=== PATIENT | female | born 1960 | race Caucasian/White ===

== ENCOUNTER 2023-12-19 12:55 | Inpatient (IN) | payer BC, OTHER ==
[~2023-12-19] VITALS: Ht 165.1 cm; Wt 71.2 kg
[~2023-12-19 12:55] MED LIST: MECL-69 PO; PANT40TA39 PO
[2023-12-19 14:05] LABS: BASOPHILS % (AUTO) 0.7 % (0-1); EOSINOPHILS # (AUTO) 0.1 X10'3 (0-0.9); EOSINOPHILS % (AUTO) 1.9 % (0-6); HEMATOCRIT 27.7 % (35.0-45.0); HEMOGLOBIN 9.6 g/dl (12.0-16.0); LYMPHOCYTES # (AUTO) 0.6 X10'3 (1.1-4.8); LYMPHOCYTES % (AUTO) 10.7 % (21-51); MEAN CORPUSCULAR HEMOGLOBIN 35.1 PG (27.0-31.0); MEAN CORPUSCULAR HGB CONC 34.5 g/dL (33.0-36.5); MEAN CORPUSCULAR VOLUME 101.6 FL (78-98); MONOCYTES # (AUTO) 0.8 X10'3 (0-0.9); MONOCYTES % (AUTO) 13.7 % (2-12); NEUTROPHILS # (AUTO) 4.1 X10'3 (1.8-7.7); PLATELET COUNT 100 X10'3 (140-440); RED BLOOD COUNT 2.73 X10'6 (4.20-5.60); RED CELL DISTRIBUTION WIDTH 17.3 % (11.5-14.5); WHITE BLOOD COUNT 5.6 X10'3 (4.5-11.0)
[2023-12-19 14:36] LABS: ALANINE AMINOTRANSFERASE 30 U/L (12-78); ALBUMIN 2.5 G/DL (3.4-5.0); ALKALINE PHOSPHATASE 254 IU/L (46-116); ANION GAP 5 (8-16); ASPARTATE AMINO TRANSFERASE 66 U/L (10-37); BILIRUBIN,TOTAL 4.6 MG/DL (0.1-1.0); BLOOD UREA NITROGEN 20 MG/DL (7-18); BUN/CREATININE RATIO 26.7 (10.0-20.0); CALCIUM 8.5 MG/DL (8.5-10.1); CHLORIDE 108 MMOL/L (99-107); CREATININE 0.75 MG/DL (0.40-0.90); GLUCOSE 112 MG/DL (70-104); POTASSIUM 4.6 MMOL/L (3.5-5.1); SODIUM 141 MMOL/L (135-145); TOTAL CARBON DIOXIDE 27.6 MMOL/L (24-32); eCRCL 68 ML/MIN; eGFR 78 ML/MIN
[2023-12-19 14:39] LABS: ALBUMIN/GLOBULIN RATIO 0.6 (1.1-1.5); TOTAL PROTEIN 6.6 G/DL (6.4-8.2)
[2023-12-19 14:58] LABS: ANISOCYTOSIS 1+; PLATELET ESTIMATE DECREASED; TOTAL CELLS COUNTED 100
[2023-12-19 14:59] LABS: BURR CELLS FEW; ELLIPTOCYTES FEW; SCHISTOCYTES FEW
[2023-12-19 15:28] LABS: ETHANOL < 10 MG/DL (<10); INR 1.3 INR; PROTHROMBIN TIME 14.1 SECONDS (9.0-12.0)
[2023-12-19] MEDS: normal saline 1000ML IV soln IVB ONE ×2 (15:43→17:34)
[2023-12-19 16:28] LABS: BILIRUBIN,URINE NEGATIVE (Neg); CLARITY,URINE CLEAR (Clear); COLOR,URINE YELLOW (Yellow); GLUCOSE, URINE NEGATIVE (Neg); KETONES,URINE NEGATIVE (Neg); LEUKOCYTE ESTERASE ,URINE TRACE (Neg); NITRITES, URINE NEGATIVE (Neg); OCCULT BLOOD,URINE NEGATIVE (Neg); PROTEIN,URINE NEGATIVE (Neg)
[2023-12-19] MEDS ORDERED: OXYC-658 PO (16:29)
[2023-12-19] MEDS ORDERED: CELE-193 PO (16:29)
[2023-12-19] MEDS ORDERED: CEFA500C PO (16:29)
[2023-12-19 16:35] LABS: UA COLLECTION TYPE NON-SPECIFIED
[2023-12-19 16:36] LABS: SQUAMOUS EPITHELIAL CELL,UR FEW /LPF (FEW); TRANSITIONAL EPI CELLS,URINE FEW /HPF
[2023-12-19 16:37] LABS: BACTERIA,URINE FEW /HPF (Neg); RBC,URINE 0-2 /HPF (0-2); WBC,URINE 0-4 /HPF (0-4)
[2023-12-19] MEDS ORDERED: FURO40TA4 PO (16:37)
[2023-12-19] MEDS ORDERED: ROSU10TA28 PO (16:37)
[2023-12-19] MEDS ORDERED: PANT40TA54 PO (16:37)
[2023-12-19] MEDS ORDERED: ONDA4TAB12 PO (16:37)
[2023-12-19] MEDS ORDERED: POLY119P2 PO (16:37)
[2023-12-19] MEDS ORDERED: SPIR50TA5 PO (16:37)
[2023-12-19] MEDS ORDERED: CHOL100025 PO (16:38)
[2023-12-19] MEDS ORDERED: CALC500T13 PO (16:38)
[2023-12-19] MEDS ORDERED: ROMO210S (16:40)
[2023-12-19 16:52] LABS: URINE AMPHETAMINE SCREEN NEGATIVE (Neg); URINE BARBITUATE SCREEN NEGATIVE (Neg); URINE BENZODIAZEPINES SCREEN NEGATIVE (Neg); URINE CANNABINOID SCREEN NEGATIVE (Neg); URINE COCAINE SCREEN NEGATIVE (Neg); URINE METHADONE SCREEN NEGATIVE (Neg); URINE OPIATE SCREEN NEGATIVE (Neg); URINE PHENCYCLIDINE SCREEN NEGATIVE (Neg)
[2023-12-19] MEDS: cephalexin 250mg capsule PO ONE (17:34)
[2023-12-19] MEDS ORDERED: mag hydrox/Alum hydrox/simeth 30ml oral suspension PO PRN (17:50)
[2023-12-19] MEDS ORDERED: ondansetron/PF 4mg/2ml inj IV PRN (17:50)
[2023-12-19] MEDS ORDERED: acetaminophen 325mg tablet PO PRN (17:50)
[2023-12-19] MEDS ORDERED: magnesium hydroxide 30ml (MOM) UD suspension PO PRN (17:50)
[2023-12-19] MEDS: dextrose 5%-1/2 normal saline 1,000 ML IV SCH (18:41)
[2023-12-19] MEDS: lactulose 20gm/30ml cup PO SCH (20:37)
[2023-12-19] MEDS: docusate sod 100mg capsule PO SCH (20:38)
[2023-12-19] MEDS: cephalexin 250mg capsule PO SCH (20:38)
[2023-12-19 22:00] VITALS: BP 114/48; PULSE 63; RESP 18; TEMP 97.9; O2SAT 98
[2023-12-19] MEDS: traMADol 50MG tablet PO PRN (22:42)
[2023-12-19 23:00] VITALS: BP 118/61; PULSE 58; RESP 14; TEMP 97.6; O2SAT 100; O2SAT 99
[2023-12-20] VITALS (7 sets, daily range): BP systolic 102–127; BP diastolic 47–62; PULSE 60–84; RESP 14–18; TEMP 97.6–98.9; O2SAT 96–100
[2023-12-20 06:44] LABS: BASOPHILS % (AUTO) 0.5 % (0-1); EOSINOPHILS # (AUTO) 0.1 X10'3 (0-0.9); EOSINOPHILS % (AUTO) 1.9 % (0-6); HEMATOCRIT 23.1 % (35.0-45.0); LYMPHOCYTES # (AUTO) 0.9 X10'3 (1.1-4.8); LYMPHOCYTES % (AUTO) 18.3 % (21-51); MEAN CORPUSCULAR HEMOGLOBIN 35.1 PG (27.0-31.0); MEAN CORPUSCULAR HGB CONC 34.8 g/dL (33.0-36.5); MEAN CORPUSCULAR VOLUME 100.9 FL (78-98); MEAN PLATELET VOLUME 7.6 FL (7.4-10.4); MONOCYTES # (AUTO) 0.8 X10'3 (0-0.9); MONOCYTES % (AUTO) 16.2 % (2-12); NEUTROPHILS # (AUTO) 3.2 X10'3 (1.8-7.7); NEUTROPHILS % (AUTO) 63.1 % (42-75); PLATELET COUNT 87 X10'3 (140-440); RED BLOOD COUNT 2.29 X10'6 (4.20-5.60); RED CELL DISTRIBUTION WIDTH 17.5 % (11.5-14.5); WHITE BLOOD COUNT 5.1 X10'3 (4.5-11.0)
[2023-12-20 07:04] LABS: ALANINE AMINOTRANSFERASE 28 U/L (12-78); ALBUMIN 2.2 G/DL (3.4-5.0); ALBUMIN/GLOBULIN RATIO 0.7 (1.1-1.5); ALKALINE PHOSPHATASE 167 IU/L (46-116); ANION GAP 7 (8-16); ASPARTATE AMINO TRANSFERASE 54 U/L (10-37); BILIRUBIN,TOTAL 3.9 MG/DL (0.1-1.0); BLOOD UREA NITROGEN 14 MG/DL (7-18); BUN/CREATININE RATIO 19.4 (10.0-20.0); CALCIUM 7.5 MG/DL (8.5-10.1); CHLORIDE 113 MMOL/L (99-107); CREATININE 0.72 MG/DL (0.40-0.90); GLUCOSE 113 MG/DL (70-104); POTASSIUM 4.1 MMOL/L (3.5-5.1); SODIUM 143 MMOL/L (135-145); TOTAL CARBON DIOXIDE 22.7 MMOL/L (24-32); TOTAL PROTEIN 5.4 G/DL (6.4-8.2); eCRCL 71 ML/MIN; eGFR 82 ML/MIN
[2023-12-20] MEDS: polyethylene glycol 3350 17gm powd pack PO SCH (08:40)
[2023-12-20] MEDS: cholecalciferol (vitamin D3) 1,000 unit (25mcg) tablet PO SCH (08:42)
[2023-12-20] MEDS: pantoprazole 40mg Tablet.DR PO SCH (08:43)
[2023-12-20] MEDS: spironolactone 50 MG tablet PO SCH (08:43)
[2023-12-20] MEDS: furosemide 40mg tablet PO SCH (08:44)
[2023-12-20] MEDS: atorvastatin 20mg tablet PO SCH (08:44)
[2023-12-20] MEDS: celeCOXIB 100mg capsule PO SCH (08:45)
[2023-12-20] MEDS: calcium carbonate 500mg chew tablet PO SCH (08:45)
[2023-12-20] MEDS: acetaminophen 325mg tablet PO PRN (09:00)
[2023-12-20 09:02] LABS: ANISOCYTOSIS 1+; BURR CELLS 1+; ELLIPTOCYTES FEW; PLATELET ESTIMATE DECREASED; SCHISTOCYTES FEW; TOTAL CELLS COUNTED 100
[2023-12-21 06:00] VITALS: BP 111/45; PULSE 74; RESP 18; TEMP 98.3; O2SAT 100
[2023-12-21 07:29] LABS: BASOPHILS % (AUTO) 0.6 % (0-1); EOSINOPHILS # (AUTO) 0.2 X10'3 (0-0.9); EOSINOPHILS % (AUTO) 2.7 % (0-6); HEMATOCRIT 24.2 % (35.0-45.0); HEMOGLOBIN 8.2 g/dl (12.0-16.0); LYMPHOCYTES # (AUTO) 1.1 X10'3 (1.1-4.8); LYMPHOCYTES % (AUTO) 14.7 % (21-51); MEAN CORPUSCULAR HEMOGLOBIN 34.6 PG (27.0-31.0); MEAN CORPUSCULAR HGB CONC 33.9 g/dL (33.0-36.5); MEAN PLATELET VOLUME 7.8 FL (7.4-10.4); MONOCYTES # (AUTO) 1.2 X10'3 (0-0.9); MONOCYTES % (AUTO) 16.5 % (2-12); NEUTROPHILS # (AUTO) 4.7 X10'3 (1.8-7.7); NEUTROPHILS % (AUTO) 65.5 % (42-75); PLATELET COUNT 90 X10'3 (140-440); RED BLOOD COUNT 2.37 X10'6 (4.20-5.60); RED CELL DISTRIBUTION WIDTH 17.6 % (11.5-14.5); WHITE BLOOD COUNT 7.2 X10'3 (4.5-11.0)
[2023-12-21 07:54] LABS: ALANINE AMINOTRANSFERASE 25 U/L (12-78); ALBUMIN 2.2 G/DL (3.4-5.0); ALKALINE PHOSPHATASE 227 IU/L (46-116); ANION GAP 9 (8-16); ASPARTATE AMINO TRANSFERASE 51 U/L (10-37); BILIRUBIN,TOTAL 4.1 MG/DL (0.1-1.0); BLOOD UREA NITROGEN 18 MG/DL (7-18); BUN/CREATININE RATIO 19.8 (10.0-20.0); CALCIUM 7.5 MG/DL (8.5-10.1); CHLORIDE 108 MMOL/L (99-107); CREATININE 0.91 MG/DL (0.40-0.90); GLUCOSE 137 MG/DL (70-104); POTASSIUM 4.5 MMOL/L (3.5-5.1); SODIUM 139 MMOL/L (135-145); TOTAL CARBON DIOXIDE 22.5 MMOL/L (24-32); eCRCL 56 ML/MIN; eGFR 62 ML/MIN
[2023-12-21 08:00] LABS: ALBUMIN/GLOBULIN RATIO 0.6 (1.1-1.5); TOTAL PROTEIN 5.6 G/DL (6.4-8.2)
[2023-12-21 08:17] VITALS: RESP 18
[2023-12-21 10:00] VITALS: BP 102/44; PULSE 75; RESP 16; TEMP 98.1; O2SAT 98
[2023-12-21] MEDS ORDERED: TRAM50TA2 PO (10:06)
[2023-12-21 10:41] VITALS: RESP 20
== END 2023-12-21 17:50 | disposition home or self-care (01) | DRG 93 ==
LOC: ER 12:56 → ED HOLD 17:52 → ORTHO 4S 21:00
PROVIDERS: ADMIT Internal Medicine; ATTEND Internal Medicine
DX: G92.8 Other toxic encephalopathy (principal); K70.31 Alcoholic cirrhosis of liver with ascites; D53.9 Nutritional anemia, unspecified; K72.10 Chronic hepatic failure without coma; D69.59 Other secondary thrombocytopenia; T40.695A Adverse effect of other narcotics, initial encounter; Z98.891 History of uterine scar from previous surgery; Y92.89 Other specified places as the place of occurrence of the external cause; Z91.048 Other nonmedicinal substance allergy status; Z88.0 Allergy status to penicillin; Z98.84 Bariatric surgery status; Z90.49 Acquired absence of other specified parts of digestive tract; Z79.899 Other long term (current) drug therapy; Z86.718 Personal history of other venous thrombosis and embolism
CPT/HCPCS: 36415; 70450; 71045; 76700; 80053; 80305; 80320; 81001; 82140; 83605; 84145; 85007; 85025; 85610; 87040; 87088; 99285; A6223; A6253; A6446; A6449; C1758; G0378; J3490; J7030

== ENCOUNTER 2024-03-28 02:58 | Emergency (ER) | payer OTHER ==
[~2024-03-28] VITALS: Ht 157.5 cm; Wt 75.0 kg
[~2024-03-28 02:58] MED LIST changes: +CALC500T13 PO; +CEFA500C PO; +CELE-193 PO; +CHOL100025 PO; +FURO40TA4 PO; -MECL-69 PO; +ONDA-243 PO; -PANT40TA39 PO; +PANT40TA54 PO; +POLY119P2 PO; +ROMO210S; +ROSU10TA72 PO; +SPIR50TA5 PO; +TRAM50TA2 PO
[2024-03-28] MEDS: LORazepam 1 MG tablet PO ONE (03:58)
[2024-03-28] MEDS: ketorolac tromethamine 15mg/ml inj. IM ONE (03:59)
[2024-03-28] MEDS ORDERED: LORA-269 PO (04:38)
[2024-03-28 05:09] VITALS: BP 109/65; PULSE 71; RESP 14; TEMP 98.7; O2SAT 99
== END 2024-03-28 05:11 | disposition home or self-care (01) ==
LOC: ER 02:59
DX: G89.18 Other acute postprocedural pain (principal); M25.522 Pain in left elbow; Z98.890 Other specified postprocedural states; Z86.718 Personal history of other venous thrombosis and embolism; Z88.0 Allergy status to penicillin; Z88.8 Allergy status to other drugs, medicaments and biological substances; Z79.899 Other long term (current) drug therapy; Z79.2 Long term (current) use of antibiotics
CPT/HCPCS: 73080; 96372; 99283; J1885

== ENCOUNTER 2024-07-26 12:10 | Emergency (ER) | payer OTHER ==
[~2024-07-26] VITALS: Ht 154.9 cm; Wt 81.2 kg
[~2024-07-26 12:10] MED LIST changes: +LORA-269 PO
[2024-07-26 12:19] VITALS: TEMP 98.7
[2024-07-26 14:49] LABS: BASOPHILS % (AUTO) 0.6 % (0-1); EOSINOPHILS # (AUTO) 0.1 X10'3 (0-0.9); EOSINOPHILS % (AUTO) 1.6 % (0-6); HEMATOCRIT 29.7 % (35.0-45.0); HEMOGLOBIN 10.1 g/dl (12.0-16.0); LYMPHOCYTES # (AUTO) 0.9 X10'3 (1.1-4.8); LYMPHOCYTES % (AUTO) 14.1 % (21-51); MEAN CORPUSCULAR HEMOGLOBIN 33.3 PG (27.0-31.0); MEAN CORPUSCULAR HGB CONC 34.1 g/dL (33.0-36.5); MEAN CORPUSCULAR VOLUME 97.7 FL (78-98); MEAN PLATELET VOLUME 7.4 FL (7.4-10.4); MONOCYTES # (AUTO) 1.2 X10'3 (0-0.9); MONOCYTES % (AUTO) 18.4 % (2-12); NEUTROPHILS # (AUTO) 4.3 X10'3 (1.8-7.7); NEUTROPHILS % (AUTO) 65.3 % (42-75); PLATELET COUNT 144 X10'3 (140-440); RED BLOOD COUNT 3.04 X10'6 (4.20-5.60); WHITE BLOOD COUNT 6.5 X10'3 (4.5-11.0)
[2024-07-26 15:09] LABS: ALANINE AMINOTRANSFERASE 24 U/L (12-78); ALBUMIN 2.7 G/DL (3.4-5.0); ALKALINE PHOSPHATASE 227 IU/L (46-116); AMYLASE 75 U/L (25-115); ANION GAP 7 (8-16); ASPARTATE AMINO TRANSFERASE 58 U/L (10-37); BILIRUBIN,TOTAL 3.8 MG/DL (0.1-1.0); BLOOD UREA NITROGEN 14 MG/DL (7-18); BUN/CREATININE RATIO 20.3 (10.0-20.0); CALCIUM 8.1 MG/DL (8.5-10.1); CHLORIDE 108 MMOL/L (99-107); CREATININE 0.69 MG/DL (0.40-0.90); GLUCOSE 73 MG/DL (70-104); LIPASE 42 U/L (16-77); POTASSIUM 4.2 MMOL/L (3.5-5.1); SODIUM 140 MMOL/L (135-145); TOTAL CARBON DIOXIDE 25.5 MMOL/L (24-32); eCRCL 62 ML/MIN; eGFR 86 ML/MIN
[2024-07-26 15:15] LABS: ALBUMIN/GLOBULIN RATIO 0.6 (1.1-1.5); TOTAL PROTEIN 7.3 G/DL (6.4-8.2)
[2024-07-26 15:46] LABS: ACANTHOCYTES FEW; ELLIPTOCYTES FEW; PLATELET ESTIMATE NORMAL; TOTAL CELLS COUNTED 100
[2024-07-26 15:50] LABS: BILIRUBIN,URINE MODERATE (Neg); CLARITY,URINE SLIGHTLY CLOUDY (Clear); COLOR,URINE YELLOW (Yellow); GLUCOSE, URINE NEGATIVE (Neg); KETONES,URINE 15 mg/dl (Neg); LEUKOCYTE ESTERASE ,URINE NEGATIVE (Neg); NITRITES, URINE NEGATIVE (Neg); OCCULT BLOOD,URINE NEGATIVE (Neg); PH,URINE 5.5 (4.8-8.0); PROTEIN,URINE NEGATIVE (Neg)
[2024-07-26 15:55] LABS: UA COLLECTION TYPE CLN CATCH MIDSTREAM
[2024-07-26 15:56] LABS: MUCUS STRANDS MODERATE /LPF (Neg); SQUAMOUS EPITHELIAL CELL,UR MANY /LPF (FEW)
[2024-07-26 15:57] LABS: BACTERIA,URINE FEW /HPF (Neg); RBC,URINE 0-2 /HPF (0-2); WBC CLUMPS,URINE FEW /HPF (NEGATIVE)
[2024-07-26 19:36] VITALS: BP 102/40; PULSE 72; RESP 16; O2SAT 99
== END 2024-07-26 20:01 | disposition home or self-care (01) ==
LOC: ER 12:11
DX: K74.60 Unspecified cirrhosis of liver (principal); Z88.0 Allergy status to penicillin; Z88.5 Allergy status to narcotic agent; Z86.718 Personal history of other venous thrombosis and embolism; Z79.899 Other long term (current) drug therapy; Z98.890 Other specified postprocedural states
CPT/HCPCS: 76700; 80053; 81001; 82150; 83690; 85007; 85025; 93971; 99285

== ENCOUNTER 2025-04-05 11:36 | Emergency (ER) | payer MEDICARE ==
[~2025-04-05] VITALS: Ht 157.5 cm; Wt 82.0 kg
[~2025-04-05 11:36] MED LIST changes: +CEFD300C3 PO; -CELE-193 PO; +MIDO5TAB4 PO; -ONDA-243 PO; -POLY119P2 PO; -TRAM50TA2 PO
[2025-04-05 11:51] VITALS: TEMP 97.3
[2025-04-05 12:21] LABS: MEAN PLATELET VOLUME 7.2 FL (7.4-10.4); RED CELL DISTRIBUTION WIDTH 18.1 % (11.5-14.5)
[2025-04-05 12:55] LABS: CREATININE 0.63 MG/DL (0.40-0.90); TOTAL CARBON DIOXIDE 23.4 MMOL/L (24-32); eCRCL 70 ML/MIN; eGFR > 90 ML/MIN
--- NOTE | 2025-04-05 13:06 | Physician Documentation ---
History of Present Illness ~ Chief Complaint: Constipation Stated Complaint: ABD PAIN Time Seen by MD: 13:11 Primary Medical Doctor: None HPI Patient is a 64-year-old female that reports to the emergency department for re- evaluation of abdominal pain. Patient reports that she was discharged 2 weeks ago for an episode that is very much the same as what she is currently experienc ing. Patient reports that she was diagnosed with mesenteric colitis at that time. Patient reports she has not had a complete bowel movement since her time of discharge is passing gas. Reports only squirts accompanied by significant discomfort in her abdomen and burning in her stomach. Patient reports nausea but has not vomited. Patient reports a history significant for hepatic cirrhosis. Medication Reconciliation Allergies: Coded Allergies: Penicillins (Verified Allergy, Unknown, 03/18/25) TOLERATED ROCEPHIN 03/2013 oxycodone (Verified Adverse Reaction, Unknown, DOES NOT REACT WELL, 03/17/25) Uncoded Allergies: TAPE (Allergy, Unknown, 03/08/14) Scheduled Calcium Carbonate (Tums), 2 TAB PO DAILY, (Reported) Cefadroxil (Cefadroxil), 1 CAP PO Q12H, (Reported) Cefdinir (Cefdinir), 1 CAP PO Q12H Cholecalciferol (Vitamin D), 3 TAB PO DAILY, (Reported) Furosemide 40 MG (Lasix), 1 TAB PO DAILY, (Reported) Midodrine HCl (Midodrine HCl), 2 TAB PO Q8H Pantoprazole Sodium (Pantoprazole Sodium), 1 TAB PO DAILY, (Reported) Rosuvastatin Calcium (Rosuvastatin Calcium), 1 TAB PO DAILY, (Reported) Spironolactone (Spironolactone), 1 TAB PO DAILY, (Reported) Scheduled PRN Lorazepam (Ativan), 1 TAB PO Q12H PRN PRN for anxiety Miscellaneous Medications Romosozumab-Aqqg (Evenity (2 Syringes)), (Reported) Past Medical History Past Medical History: Cirrohsis, Deep Vein Thrombosis Past Surgical History: abdominal surgery, , gastric bypass, other Patient History: Patient reports no known family medical history. Alcohol Use: Sober Drug Use: none Lives with: Spouse Lives In: Home Review of Systems ROS As stated above in the HPI, otherwise all systems are reviewed and negative. Physical Exam Vital Signs: Temperature: 97.3, Source: Temporal, Heart Rate: 80, Respiratory Rate: 16, BP: 111/69, Pulse Oximetry: 100, Weight: 82.000 Oxygen Flow Rate: 0 Physical Exam VITALS: Reviewed and as above. GENERAL: Alert, no apparent distress. HEENT: Normocephalic, atraumatic, PERRL, EOMI, dry mucosa, no erythema RESPIRATORY: Lungs clear, normal breath sounds, no respiratory distress. CHEST: No accessory muscle use, no retractions CV: Regular rate, rhythm, no edema, no murmur, No: JVD GI: Soft, tender with palpation, bowels sounds hypoactive, no rebound, guarding, or rigidity BACK: No CVA tenderness, or swelling MUSCULOSKELETAL No deformities, no edema SKIN: Warm and dry, no rash NEURO: Oriented x4, No motor or sensory deficit PSYCH: Normal mood and affect, no agitation Progress Results/Orders Results/Orders Orders - RADHA AGUILA TITLE ATTORNEY Ct Abdomen Pelvis (04/05/25 14:46) Completed Orders - RADHA AGUILA TITLE ATTORNEY Stat Ekg (04/05/25 13:19) Ct Abdomen Pelvis (04/05/25 14:46) Normal Saline 1000ml (0.9% Sodium Chlori (04/05/25 15:50) Ondansetron Inj. (Zofran 4mg/2ml Vial) (04/05/25 16:30) Diphenhydramine Inj (Benadryl Inj.) (04/05/25 16:30) Morphine 2mg/Ml Inj. (Morphine Inj.) (04/05/25 16:30) Medications Received in ER Medications (Trade) Dose Ordered Sig/Sofia Route PRN Reason Start Time Stop Time Status Last Admin Dose Admin Sodium Chloride 1,000 ml @ 1,000 mls/hr ONCE ONCE IV 04/05/25 15:50 04/05/25 16:49 DC 04/05/25 16:25 1,000 MLS/HR (Zofran 4mg/2ml vial) 4 mg ONCE ONCE IV 04/05/25 16:30 04/05/25 16:31 DC 04/05/25 16:35 4 MG (Benadryl inj.) 25 mg ONCE ONCE IV 04/05/25 16:30 04/05/25 16:31 DC 04/05/25 16:35 25 MG (morphine inj.) 2 mg ONCE ONCE IV 04/05/25 16:30 04/05/25 16:31 DC 04/05/25 16:35 2 MG Vital Signs 04/05/25 04/05/25 04/05/25 04/05/25 11:51 14:33 14:33 16:35 Temp 97.3 Pulse 80 64 Resp 16 16 16 16 B/P (MAP) 111/69 137/58 (84) Pulse Ox 100 98 O2 Flow Rate 0 0 04/05/25 04/05/25 16:43 18:22 Pulse 69 62 Resp 15 B/P (MAP) 129/52 (77) 126/51 (76) Pulse Ox 100 98 O2 Flow Rate 0 0 Laboratory Tests Test 04/05/25 12:05 04/05/25 15:11 White Blood Count 4.5 Red Blood Count 3.43 L Hemoglobin 10.4 L Hematocrit 30.7 L Mean Corpuscular Volume 89.5 Mean Corpuscular Hemoglobin 30.4 Mean Corpuscular Hemoglobin Concent 34.0 Red Cell Distribution Width 18.1 H Platelet Count 153 Mean Platelet Volume 7.2 L Neutrophils (%) (Auto) 72.1 Lymphocytes (%) (Auto) 16.6 L Monocytes (%) (Auto) 9.2 Eosinophils (%) (Auto) 1.2 Basophils (%) (Auto) 0.9 Neutrophils # (Auto) 3.3 Lymphocytes # (Auto) 0.8 L Monocytes # (Auto) 0.4 Eosinophils # (Auto) 0.1 Basophils # (Auto) 0.0 CBC Comment Sodium Level 139 Potassium Level 4.1 Chloride Level 105 Carbon Dioxide Level 23.4 L Anion Gap 11 Blood Urea Nitrogen 12 Creatinine 0.63 Estimated GFR/1.73 m2 > 90 BUN/Creatinine Ratio 19.0 Glucose Level 111 H Calcium Level 8.7 Total Bilirubin 4.2 H Aspartate Amino Transf (AST/SGOT) 65 H Alanine Aminotransferase (ALT/SGPT) 12 Alkaline Phosphatase 200 H Total Protein 7.3 Albumin 2.9 L Globulin 4.4 H Albumin/Globulin Ratio 0.7 L Lipase 34 Chemistry Comments Urine Specimen Description Cln catch midstream Urine Color Dark yellow Urine Clarity Slightly cloudy Urine pH 5.5 Urine Specific [place] 1.025 Urine Protein Negative Urine Glucose (UA) Negative Urine Ketones 15 H Urine Occult Blood Negative Urine Nitrite Negative Urine Bilirubin Small Urine Urobilinogen 1.0 Urine Leukocyte Esterase Negative Urine RBC 0-2 Urine WBC 0-4 Urine Squamous Epithelial Cells Moderate Urine Transitional Epithelial Cells Moderate Urine Amorphous Urates 1+ Urine Bacteria 1+ Urine Hyaline Casts 0-3 Urine Coarse Granular Casts 0-3 Urine Mucus Moderate Urine Culture Indicated Not ind Volume Urine Centrifuged 10 ml Urine HCG, Qualitative Negative Urine Comment Medical Decision Making Findings 1809: Dr. Wright with surgery regarding this patient. Her yKle recommends with patient increased her fluids and follow up with her primary care provider as this is a nonemergent or surgical finding at this time. He also recommends to educate the patient on bowel movements and passing gas if she is unable to do either she will need to return for evaluation. Abdominal exam without peritoneal signs. No evidence of acute abdomen at this time. Well appearing. Given work up, low suspicion for acute progression of her baselinehepatic disease, no evidence of hepatobiliary disease (including acute cholecystitis or cholangitis), acute pancreatitis (neg lipase), PUD (including gastric perforation), acute infectious processes (pneumonia, hepatitis, pyelonephritis), acute appendicitis, vascular catastrophe, bowel obstruction, viscus perforation, or diverticulitis. Presentation not consistent with other acute, emergent causes of abdominal pain at this time. Discussed with the patient management of constipation since her discharge 2 weeks ago. Patient reports that she will increase her fluids and continue with her stool softening regimen at home. Patient will follow up with her primary care provider. Patient was provided with very strict return precautions to the emergency room including fever vomiting, shortness of breath or dizziness, increased abdominal pain not passing gas, and blood in her urine or stool. Discussed this patient with my attending Dr. Adorno. She lives and agrees that this patient meets criteria to be sent home with education and strict return precautions. Diff Dx GI Bleed:Consideration: Include: AE fistula, Angiodysplasia, Bleeding diathesis, Blood loss anemia, Carcinoma, Diverticulosis, Diverticulitis, Esophageal varicies, Esophagitis, Gastritis, Gastroenteritis, Inflammatory BD, Alisha-Hernández syndrome, Meckel's diverticulum, PUD, Other Diff Dx Pain:Considerations: Include: AAA, -Complete, - Incomplete, -Inevitable, -Missed, -Threatened, Abruptio placentae, Angina/[place], Aortic dissection, Appendicitis, Bowel obstruction, Cholangitis, Cholecystitis, Cholelithasis, Constipation, Diverticular disease, Dysmenorrhea, Ectopic , Esophageal rupture, Esophagitis, Gastritis/PUD, Gastroenteritis, GI hemorrhage, Hernia, Hepatitis, Inflammatory BD, Ischemic bowel, Mass, Ovarian cyst/torsion, Pancreatitis, PID, Porphyria, Trauma, intraabdominal, Urinary obstruction, Urinary tract infection, Urolithiasis, Other Diff Dx N/V/D:Considerations: Include: Appendicitis, Bowel obstruction, Dehydration, DKA, Diarrhea - bacterial, Diarrhea - parasitic, Diarrhea - viral, Diverticulitis, Diverticulosis, Drug toxicity, Electrolyte imbalance, Food poisoning, Gastroenteritis, GE reflux, GI bleed, Hepatitis, Hernia, Hypovolemia, Hypotension, Inflammatory BD, Impaction, Malnutrition, Pancreatitis, , PUD, Renal failure, Urolithiasis, Urinary obstruction, UTI, Other Diff Dx Rectal:Considerations: Include: Fissure, Fistula, Foreign body, Impaction, Perirectal abscess, Rectal prolapse, Subcutaneous abscess, Thrombosed hemorrhoid, Ulcer, UTI, Other Departure Disposition: 01 HOME / SELF CARE / HOMELESS Impression: Primary Impression: Constipation Additional Impression: Abdominal pain Condition: Stable Discharge Instructions: Abdominal Pain, Adult, Constipation, Adult Referrals: NO PRIMARY CARE PROVIDER (PCP) Education Educated: Patient, Family Educated regarding: diagnosis, treatment, need for follow up Signature Scribe Signature: AScribed for Radha Aguila by ABDIRAHMAN Li . 04/05/25 18:48 Attestation: Scribed for Radha Aguila by ABDIRAHMAN Li . 04/05/25 18:49 RADHA AGUILA Apr 05, 2025 13:06
--- NOTE | 2025-04-05 13:49 | ELECTROCARDIOGRAPH REPORT ---
[facility] Test Date: 2025-04-05 Test Time: 13:47:50 Pat Name: HARPER MAHER Department: EMERGENCY ROOM Room: Gender: F Event Specialist Product Demonstrator: BEATA : 1960 Requested By: RADHA AGUILA Order Number: [id number] Reading MD: Measurements Intervals [place] Rate: 74 P: 42 PA: 128 QRS: -28 QRSD: 103 T: 59 QT: 431 QTc: 479 Interpretive Statements Sinus rhythm Borderline left axis deviation Abnormal R-wave progression, late transition Please click the below link to view image of tracing.
--- NOTE | 2025-04-05 15:29 | RADIOLOGY REPORT ---
Exam: CT CT ABDOMEN PELVIS History: Worsening abdominal pain since discharge COMPARISON: CT CTA ABDOMEN PELVIS on DOS: 03/18/25, CT CT ABDOMEN PELVIS on DOS: 03/17/25, US ULTRASOUN D OF ABDOMEN on DOS: 07/26/24, US ULTRASOUND OF ABDOMEN on DOS: 12/19/23 Technique: Multidetector spiral CT of the abdomen and pelvis was performed from lung bases to pubic s ymphysis. Intravenous contrast was administered during this examination. Portal venous imaging was o btained. Axial, coronal and sagittal multiplanar reformats were performed by the technologist on a [employer] workstation. Radiation Dose : 1. Abdomen/Pelvis: CTDIvol 32.5 mGy, DLP 1559 mGy*cm. Findings: Lung Bases: Left basilar subsegmental atelectasis. Liver: The liver is normal in size. No focal lesions. Normal hepatic vascular enhancement. Gallbladder and Biliary Tree: Unremarkable Spleen: Unremarkable Pancreas: The pancreas is normal in appearance without focal lesions or abnormal enhancement. Adrenal Glands: Unremarkable Kidneys: No hydronephrosis. Bladder: Unremarkable Bowel: Post gastric bypass. Moderate distention and severe wall thickening of the distal excluded gas tric remnant and proximal duodenum. Small bowel and colon are normal in caliber and distribution. The appendix is not visualized; however, no secondary findings of acute appendicitis identified. Ascites: Absent Lymphadenopathy: No mesenteric, retroperitoneal or periportal lymphadenopathy. Abdominal Wall and Mesentery: Unremarkable. Vasculature: IVC filter in-situ. The visualized abdominal aorta is normal in size and caliber. Abdom inal and pelvic vessels demonstrate normal enhancement. Pelvic Organs: Unremarkable Musculoskeletal: No aggressive focal bony lesions, acute fractures or dislocation. Degenerative walter es of the spine. 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 Underlying neoplasm or stricture of the distal jaylon myles remnant/ proximal duodenum is not completely excluded. Clinical correlation advised.
[2025-04-05 15:36] LABS: URINE HCG NEGATIVE (NEG)
[2025-04-05 15:48] LABS: LEUKOCYTE ESTERASE ,URINE NEGATIVE (Neg); NITRITES, URINE NEGATIVE (Neg); OCCULT BLOOD,URINE NEGATIVE (Neg)
[2025-04-05 15:53] LABS: UA COLLECTION TYPE CLN CATCH MIDSTREAM
[2025-04-05 16:09] LABS: HYALINE CASTS 0-3 /LPF (NEGATIVE); MUCUS STRANDS MODERATE /LPF (Neg)
[2025-04-05 16:11] LABS: AMORPHOUS URATES 1+; SQUAMOUS EPITHELIAL CELL,UR MODERATE /LPF (FEW)
[2025-04-05 16:13] LABS: COARSE GRANULAR CAST 0-3 /LPF (NEGATIVE)
[2025-04-05] MEDS: normal saline 1000ml 1,000 ML IV ONE (16:25)
[2025-04-05] MEDS: ondansetron/PF 4mg/2ml inj IV ONE (16:35)
[2025-04-05 19:07] VITALS: BP 115/51; PULSE 64; RESP 16; O2SAT 98
== END 2025-04-05 19:16 | disposition home or self-care (01) ==
LOC: ER 11:37
DX: K59.00 Constipation, unspecified (principal); R11.0 Nausea; K74.60 Unspecified cirrhosis of liver; Z86.718 Personal history of other venous thrombosis and embolism; Z88.0 Allergy status to penicillin; Z88.5 Allergy status to narcotic agent; Z98.84 Bariatric surgery status
CPT/HCPCS: 36415; 74176; 80053; 81001; 81025; 83690; 85025; 93005; 96361; 96374; 96375; 99285; J1200; J2270; J2405; J7030